=== PATIENT | male | born 1935 | race Caucasian/White ===

== ENCOUNTER 2016-11-07 02:38 | Emergency (ER) | payer OTHER | END 2016-11-07 04:54 | disposition E | LOC: ED 02:38 | DX: I46.9 Cardiac arrest, cause unspecified (principal); K21.9 Gastro-esophageal reflux disease without esophagitis; I48.91 Unspecified atrial fibrillation; E11.9 Type 2 diabetes mellitus without complications; N40.0 Benign prostatic hyperplasia without lower urinary tract symptoms; I10 Essential (primary) hypertension; E78.5 Hyperlipidemia, unspecified; Z98.890 Other specified postprocedural states; Z86.73 Personal history of transient ischemic attack (TIA), and cerebral infarction without residual deficits ==